=== PATIENT | female | born 1955 | race Caucasian/White ===

== ENCOUNTER 2019-06-21 15:02 | Emergency (ER) | payer MEDICAID ==
[~2019-06-21] VITALS: Ht 170.2 cm; Wt 57.3 kg
[~2019-06-21 15:02] MED LIST: HYDR-4383 PO
[2019-06-21 15:41] VITALS: BP 119/75
[2019-06-21] MEDS ORDERED: acetaminophen 325mg tablet PO ONE (15:45)
[2019-06-21] MEDS ORDERED: ketorolac trometh inj. 60 MG/2 ML VIAL IM ONE (15:45)
[2019-06-21] MEDS ORDERED: ketorolac trometh. 30mg/ml inj. IM ONE (15:50)
== END 2019-06-21 16:25 | disposition home or self-care (01) ==
LOC: ER 15:02
DX: S90.32XA Contusion of left foot, initial encounter (principal); I10 Essential (primary) hypertension; G89.29 Other chronic pain; Z90.49 Acquired absence of other specified parts of digestive tract; X50.1XXA Overexertion from prolonged static or awkward postures, initial encounter; Y93.01 Activity, walking, marching and hiking; Y92.89 Other specified places as the place of occurrence of the external cause; Y99.9 Unspecified external cause status
CPT/HCPCS: 73630; 96372; 99284; J1885

== ENCOUNTER 2021-01-13 06:32 | Emergency (ER) | payer MEDICARE, MEDICAID ==
[~2021-01-13] VITALS: Ht 170.2 cm; Wt 59.1 kg
[2021-01-13] MEDS ORDERED: loperamide 2mg capsule PO ONE (06:45)
[2021-01-13] MEDS ORDERED: ketorolac trometh. 30mg/ml inj. IV ONE (06:45)
[2021-01-13] MEDS ORDERED: ondansetron/PF 4mg/2ml inj IV ONE (06:45)
[2021-01-13] MEDS ORDERED: normal saline 1000ml 1,000 ML IV ONE (06:45)
[2021-01-13] MEDS ORDERED: ketorolac tromethamine 15mg/ml inj. IV ONE (06:50)
[2021-01-13 07:25] LABS: BASOPHILS % (AUTO) 0.3 % (0-1); EOSINOPHILS % (AUTO) 0 % (0-6); HEMATOCRIT 45.9 % (35.0-45.0); HEMOGLOBIN 15.7 g/dl (12.0-16.0); LYMPHOCYTES # (AUTO) 0.7 X10'3 (1.1-4.8); LYMPHOCYTES % (AUTO) 5.7 % (21-51); MEAN CORPUSCULAR HEMOGLOBIN 34.7 PG (27.0-31.0); MEAN CORPUSCULAR HGB CONC 34.3 g/dL (33.0-36.5); MEAN CORPUSCULAR VOLUME 101.1 FL (78-98); MEAN PLATELET VOLUME 8.8 FL (7.4-10.4); MONOCYTES # (AUTO) 0.4 X10'3 (0-0.9); MONOCYTES % (AUTO) 3.4 % (2-12); NEUTROPHILS # (AUTO) 11.6 X10'3 (1.8-7.7); NEUTROPHILS % (AUTO) 90.6 % (42-75); PLATELET COUNT 304 X10'3 (140-440); RED BLOOD COUNT 4.54 X10'6 (4.20-5.60); RED CELL DISTRIBUTION WIDTH 13.7 % (11.5-14.5); WHITE BLOOD COUNT 12.9 X10'3 (4.5-11.0)
[2021-01-13] MEDS ORDERED: famotidine/PF 10 mg/ml inj IV ONE (07:35)
[2021-01-13] MEDS ORDERED: dicyclomine 10mg/ml 2ml ampule IM ONE (07:35)
[2021-01-13] MEDS ORDERED: pantoprazole 40 MG vial IV ONE (07:35)
[2021-01-13] MEDS ORDERED: metoclopramide 5 mg/ml inj IV ONE (07:35)
[2021-01-13 07:39] LABS: ALANINE AMINOTRANSFERASE 28 U/L (12-78); ALBUMIN 4.4 G/DL (3.4-5.0); ALKALINE PHOSPHATASE 136 IU/L (46-116); ANION GAP 15 (8-16); ASPARTATE AMINO TRANSFERASE 25 U/L (10-37); BILIRUBIN,TOTAL 0.5 MG/DL (0.1-1.0); BLOOD UREA NITROGEN 17 MG/DL (7-18); BUN/CREATININE RATIO 16.2 (6.6-38.0); CALCIUM 9.9 MG/DL (8.5-10.1); CHLORIDE 99 MMOL/L (99-107); CREATININE 1.05 MG/DL (0.40-0.90); GLUCOSE 253 MG/DL (70-104); LIPASE 54 U/L (73-393); SODIUM 140 MMOL/L (135-145); TOTAL PROTEIN 8.6 G/DL (6.4-8.2); TROPONIN I < 0.04 NG/ML (0.0-0.05); eGFR 53 ML/MIN
[2021-01-13 07:47] LABS: POTASSIUM 2.6 MMOL/L (3.5-5.1)
[2021-01-13] MEDS ORDERED: potassium Cl 20 mEq SR tablet PO ONE (08:00)
[2021-01-13] MEDS ORDERED: potassium Cl 10 mEq/100mL bag IV ONE ×2 (08:00→09:45)
[2021-01-13] MEDS ORDERED: magnesium 2GM in 50ml NS 50 ML IV ONE (08:00)
[2021-01-13] MEDS ORDERED: proCHLORperazine 10 MG/2 ml inj IV ONE (08:35)
[2021-01-13] MEDS ORDERED: LORazepam 2 mg/ml vial IV ONE (08:35)
--- NOTE | 2021-01-13 09:02 | NUR ---
pt resting in bed at this time.vitals stable,no n/v noted at this time.will cont to monitor.
[2021-01-13] MEDS ORDERED: potassium Cl 20 mEq SR tablet PO STA (09:25)
[2021-01-13] MEDS ORDERED: LOPE2CAP PO (09:27)
[2021-01-13] MEDS ORDERED: POTA20TA19 PO (09:27)
[2021-01-13] MEDS ORDERED: ONDA4TAB6 PO (09:27)
--- NOTE | 2021-01-13 09:58 | NUR ---
JAROCHO CALLED FROM EKG, WANTS NEW EKG, LAST WAS NOT READABLE
[2021-01-13 12:14] VITALS: BP 139/97
== END 2021-01-13 12:18 | disposition home or self-care (01) ==
LOC: ER 06:32
DX: K52.9 Noninfective gastroenteritis and colitis, unspecified (principal); E87.6 Hypokalemia; G89.29 Other chronic pain; M54.5 Low back pain; F32.9 Major depressive disorder, single episode, unspecified; I10 Essential (primary) hypertension; Z79.899 Other long term (current) drug therapy
CPT/HCPCS: 36415; 80053; 83690; 84484; 85025; 93005; 96361; 96365; 96366; 96368; 96372; 96375; 99285; C9113; J0500; J0780; J1885; J2060; J2405; J2765; J3475; J3480; J3490; J7030